=== PATIENT | male | born 1980 | race Two or more races ===

== ENCOUNTER 2025-05-15 21:04 | Inpatient (IN) | payer MEDICAID ==
[~2025-05-15] VITALS: Ht 162.6 cm; Wt 61.9 kg
[2025-05-15 21:30] VITALS: BP 148/98; TEMP 98.8; O2SAT 100
[2025-05-15] MEDS ORDERED: BISACODYL SUPP (10 MG) 10 MG/SUPP.RECT SUPP.RECT RC PRN (23:30)
[2025-05-15] MEDS ORDERED: DEXTROSE 50%-WATER 50 ML DISP.SYRIN IV PRN (23:30)
[2025-05-15] MEDS ORDERED: ZOLPIDEM TARTRATE 5 MG TABLET PO PRN (23:30)
[2025-05-15] MEDS: IV NS 0.9% 1,000 ML IV PRN (23:38)
[2025-05-15] MEDS: MORPHINE SULFATE INJ 4 MG/ML DISP.SYRIN IV PRN (23:40)
[2025-05-16] MEDS: ENOXAPARIN SODIUM 40 MG/0.4 ML DISP.SYRIN SQ SCH (01:40)
[2025-05-16 04:00] VITALS: BP 115/71; TEMP 98.8; O2SAT 96
[2025-05-16 06:41] LABS: PLATELET COUNT (AUTO) 259 K/uL (150-450); RED BLOOD CELL COUNT(AUTO) 4.05 MIL/uL (4.5-6.0); RED CELL DISTRIBUTION WIDTH 13.2 % (11.5-15.0); WHITE BLOOD COUNT (AUTO) 7.8 K/uL (4.3-11.0)
[2025-05-16 06:46] LABS: ASPARTATE AMINOTRANSFERASE 12.0 U/L (15-37); CALCIUM, SERUM 8.5 mg/dL (8.5-10.1); CREATININE 0.7 mg/dL (0.6-1.3); PHOSPHORUS 3.8 mg/dL (2.5-4.9); SODIUM SERUM 136.0 mmol/L (136-145); TOTAL PROTEIN, SERUM 7.1 g/dL (6.4-8.2); UREA NITROGEN, BLOOD 10.0 mg/dL (7-18)
[2025-05-16] MEDS: BLOOD SUGAR DIAGNOSTIC 1 EACH STRIP IN SCH (06:50)
[2025-05-16] MEDS: INSULIN REGULAR, HUMAN 100 UNIT/ML 3 ML VIAL SQ PRN (06:51)
[2025-05-16] MEDS: PANTOPRAZOLE 40 MG TABLET.DR PO SCH (07:47)
[2025-05-16 08:00] VITALS: BP 131/94; TEMP 98.2; O2SAT 98
[2025-05-16 08:39] VITALS: BP 131/94; TEMP 98.2; O2SAT 96
[2025-05-16] MEDS: ACETAMINOPHEN 325 MG TABLET PO PRN (09:15)
[2025-05-16] MEDS: DOCUSATE SODIUM 100 MG CAPSULE PO SCH (09:15)
[2025-05-16] MEDS ORDERED: GLIP10TA11 PO (09:20)
[2025-05-16] MEDS ORDERED: PANT40TA49 PO (09:20)
[2025-05-16] MEDS ORDERED: METF-442 PO (09:20)
[2025-05-16] MEDS: MORPHINE SULFATE INJ 2 MG/ML DISP.SYRIN IV PRN (12:49)
[2025-05-16 16:00] VITALS: BP 125/86; TEMP 97.1; O2SAT 98
[2025-05-16] MEDS: ONDANSETRON HCL/PF 4 MG/2 ML VIAL IVP PRN (18:13)
[2025-05-16] MEDS: MAG HYDROX/AL HYDROX/SIMETH 30 ML UDC PO PRN (19:44)
[2025-05-16 20:00] VITALS: BP 111/98; TEMP 98.8; O2SAT 100
[2025-05-16] MEDS: METOCLOPRAMIDE HCL 10 MG/2 ML VIAL IV SCH (20:18)
[2025-05-16 22:39] LABS: APPEARANCE,URINE CLEAR (CLEAR); BLOOD, URINE NEGATIVE Ery/uL (NEGATIVE); LEUKOCYTE ESTERASE ,URINE NEGATIVE (NEGATIVE); NITRITE, URINE NEGATIVE (NEGATIVE); UGLUCOSE 1+ mg/dL (NEGATIVE)
[2025-05-16 22:49] LABS: AMPHETAMINE, URINE NEGATIVE (NEGATIVE); BARBITURATE, URINE NEGATIVE (NEGATIVE); BENZODIAZEPINE, URINE NEGATIVE (NEGATIVE); CANNABINOID, URINE NEGATIVE (NEGATIVE); COCCAINE, URINE NEGATIVE (NEGATIVE)
[2025-05-16 23:07] LABS: OPIATE, URINE POSITIVE (NEGATIVE)
[2025-05-16 23:10] LABS: ADD URINE CULTURE NO; SQUAMOUS EPITHELIAL CELL,UR Few /HPF (None Seen)
[2025-05-17 04:00] VITALS: BP 136/91; TEMP 99.3; O2SAT 99
[2025-05-17 07:01] LABS: PLATELET COUNT (AUTO) 257 K/uL (150-450); RED BLOOD CELL COUNT(AUTO) 4.19 MIL/uL (4.5-6.0); RED CELL DISTRIBUTION WIDTH 13.3 % (11.5-15.0); WHITE BLOOD COUNT (AUTO) 6.6 K/uL (4.3-11.0)
[2025-05-17 07:16] LABS: CALCIUM, SERUM 8.2 mg/dL (8.5-10.1); CREATININE 0.6 mg/dL (0.6-1.3); SODIUM SERUM 136.0 mmol/L (136-145); UREA NITROGEN, BLOOD 10.0 mg/dL (7-18)
== END 2025-05-17 13:05 | disposition left against medical advice (07) | DRG 241 ==
LOC: MEDSG1 21:04
DX: K29.70 Gastritis, unspecified, without bleeding (principal); E11.65 Type 2 diabetes mellitus with hyperglycemia; K59.00 Constipation, unspecified; G89.29 Other chronic pain; R11.2 Nausea with vomiting, unspecified; R10.9 Unspecified abdominal pain; F10.21 Alcohol dependence, in remission; Z79.84 Long term (current) use of oral hypoglycemic drugs
CPT/HCPCS: 36415; 80048-TC; 80053-TC; 81001; 82962-TC; 83605-TC; 83735-TC; 84100-TC; 85025-TC; A4223; G0378; J1650; J1815; J2270; J2405; J2765; J7030